=== PATIENT | female | born 1990 | race Caucasian/White ===

== ENCOUNTER 2016-04-29 21:03 | Emergency (ER) | payer OTHER ==
--- NOTE | 2016-04-29 23:34 | ED NURSING NOTES ---
Clinical Report - Nurses [facility] [address] [place] [address] 04/29/2016 21:04 Patient: FIOR VERDE TRIAGE Triage time 21:56 Apr 29 2016. Acuity: LEVEL 2. Chief Complaint: CHEST PAIN and DISCOMFORT. Alert. No acute distress. --22:00 Dianne Pearson R.N. 21:56 04/29/16. BP: 157/97. HR: 108. RR: 18. O2 saturation: 100%. Temp: 98.0 F. Pain level now 8/10. --22:00 Dianne Pearson R.N. Weight: 56.6 kg stated. Height/Length: 62 inches Per Patient. BMI: 22.8. --21:56 Dianne Pearson R.N. Medications None. --21:59 Dianne Pearson R.N. Allergies Amoxicillin. --21:59 Dianne Pearson R.N. History Arrived by private vehicle. Historian: patient. Primary physician (none). ( 1900 - Resting at home with family, sudden onset of CP, radiates up the Left side to neck.). Treatment MANAGER OF TRANSPORTATION: None. PAST MEDICAL HX: Last normal menstrual period- 28 days ago. Denies current . SOCIAL HX: Never smoker. Occasional alcohol use. No drug use. FALL RISK ASSESSMENT: Fall risk assessment completed. No fall risk identified. NUTRITIONAL RISK ASSESSMENT: The nutritional risk assessment revealed no deficiencies. FUNCTIONAL ASSESSMENT: Functional assessment: no impairments noted. LEARNING NEEDS ASSESSMENT: The learning needs assessment revealed no barriers. SKIN INTEGRITY ASSESSMENT: Skin integrity risk assessment completed. No skin integrity risk identified. --22:00 Dianne Pearson R.N. PROBLEMS: Abdominal Pain. Gastroenteritis. Immunizations. UTI - Urinary Tract Infection. . Vaginal Bleeding. Threatened . LNMP - Last Normal Menstrual Period. --21:59 Dianne Pearson R.N. ADDITIONAL SURGERIES: Dental Surgery. --21:59 Michel, Dianne, R.N. Interventions ID band on patient. To room. --22:00 Dianne Pearson R.N. PHYSICAL ASSESSMENT Ambulatory to room. GENERAL / NEURO / PSYCH: Oriented X 4. Appears in no acute distress. RESPIRATORY: Respirations not labored. CVS: Capillary refill less than 2 seconds. SKIN: Skin is warm and dry. --22:11 Dianne Pearson R.N. NURSING PROGRESS NOTES ( First meeting with pt in lobby at 21:32.). --22:02 Dianne Pearson R.N. EKG time: (22:13). EKG was performed by a tech and shown to the ED physician. --22:11 Dianne Pearson R.N. Patient ID band checked. Clean catch urine collected with return of yellow-colored clear urine; sample sent to lab for urinalysis. Specimen labeled in the presence of the patient. --22:14 Dianne Pearson R.N. 22:45- ACRN, helping in ED went in to pt room to start IV and draw blood for lab work. Pt reportedly refused. EDMD notified and spoke with pt. Pt agreed to have chest xray. --23:58 Bailey Willson R.N. DISPOSITION / DISCHARGE Condition at departure: stable. No learning barriers present. Discharge instructions provided and reviewed with the patient. Patient verbalized understanding. Written instructions provided in Sami. The patient was discharged home and accompanied by ethylbenzene cracking supervisor. She left the Emergency Department ambulatory and via private vehicle. Whipped Topping Supervisor driving. --00:03 Bailey Willson R.N. 00:03 04/30/16. BP: 116/79. HR: 82. RR: 16. O2 saturation: 100% on room air. Temp: deferred. Pain level now: 08/05. --00:03 Bailey Willson R.N. Locked/Released at 04/30/2016 0:05 by Bailey Willson R.N.
--- NOTE | 2016-04-29 23:34 | ED ORDER SUMMARY ---
..... Patient: FIOR VERDE OrderSheet [facility] VisitID: [id number] [place] [address] 26y, F Registration Date/Time: 04/29/2016 ORDER SHEET Weight: 56.6 kg (stated) Allergies: Amoxicillin GENERAL ORDERS: EKG - ER Stat (22:01 04/29/2016 Lyndsey Duong per protocol) (Ack 22:02 LMuller) (22:16 LMuller) Urine Drug Screen Urgent (22:40 04/29/2016 PHutchinson DO) (Ack 22:41 LMuller) (22:42 LMuller) UA-Culture if indicated Urgent (22:40 04/29/2016 PHutchinson DO) (Ack 22:41 LMuller) (22:42 LMuller) Urine Urgent (22:40 04/29/2016 PHutchinson DO) (Ack 22:41 LMuller) (22:42 LMuller) Accounting Assistant (Continuous) (22:45 04/29/2016 PHutchinson DO) Chest 2V Urgent (22:45 04/29/2016 PHutchinson DO) (Ack 22:47 Case) (23:23 Tina) Cardiac Panel Stat (22:58 04/29/2016 PHutchinson DO) (Ack 23:05 Ryleyekimana) BNP Urgent (22:58 04/29/2016 PHutchinson DO) (Ack 23:05 Jannieimana) D-Dimer Urgent (22:58 04/29/2016 PHutchinson DO) (Ack 23:05 Ryleyekimana) Amylase Urgent (22:58 04/29/2016 PHutchinson DO) (Ack 23:05 Jannieimana) TSH Urgent (22:58 04/29/2016 PHutchinson DO) (Ack 23:05 Adrianaegekimana) MEDICATION ORDERS: IV FLUIDS: IV NS : initial bolus 500 mL (1000 mL/hr), then 250 mL/hr for X4 (NOW) (22:58 04/29/2016 PHutchinson DO) ORDER SHEET NOTES: [Electronically signed by Bailey Willson R.N. (00:05 04/30/2016)] [Electronically signed by Ronald Herzog DO (03:32 04/30/2016)] [Electronically locked/signed by Bailey Willson R.N. (00:05 04/30/2016)]
--- NOTE | 2016-04-29 23:34 | ED ORDER SUMMARY ---
..... Patient: FIOR VERDE OrderSheet [facility] VisitID: [id number] [place] [address] 26y, F Registration Date/Time: 04/29/2016 ORDER SHEET Weight: 56.6 kg (stated) Allergies: Amoxicillin GENERAL ORDERS: EKG - ER Stat (22:01 04/29/2016 Lyndsey Duong per protocol) (Ack 22:02 LMuller) (22:16 LMuller) Urine Drug Screen Urgent (22:40 04/29/2016 PHutchinson DO) (Ack 22:41 LMuller) (22:42 LMuller) UA-Culture if indicated Urgent (22:40 04/29/2016 PHutchinson DO) (Ack 22:41 LMuller) (22:42 LMuller) Urine Urgent (22:40 04/29/2016 PHutchinson DO) (Ack 22:41 LMuller) (22:42 LMuller) Flaring Machine Operator (Continuous) (22:45 04/29/2016 PHutchinson DO) Chest 2V Urgent (22:45 04/29/2016 PHutchinson DO) (Ack 22:47 Case) (23:23 Tina) Cardiac Panel Stat (22:58 04/29/2016 PHutchinson DO) (Ack 23:05 Ryleyekimana) BNP Urgent (22:58 04/29/2016 PHutchinson DO) (Ack 23:05 Jannieimana) D-Dimer Urgent (22:58 04/29/2016 PHutchinson DO) (Ack 23:05 Ryleyekimana) Amylase Urgent (22:58 04/29/2016 PHutchinson DO) (Ack 23:05 Jannieimana) TSH Urgent (22:58 04/29/2016 PHutchinson DO) (Ack 23:05 Adrianaegekimana) MEDICATION ORDERS: IV FLUIDS: IV NS : initial bolus 500 mL (1000 mL/hr), then 250 mL/hr for X4 (NOW) (22:58 04/29/2016 PHutchinson DO) ORDER SHEET NOTES: [Electronically signed by Bailey Willson R.N. (00:05 04/30/2016)] [Electronically signed by Ronald Herzog DO (03:32 04/30/2016)] [Electronically locked/signed by Bailey Willson R.N. (00:05 04/30/2016)]
--- NOTE | 2016-04-29 23:34 | ED CLINICAL REPORT ---
Clinical Report - Physicians/Mid Levels [facility] [address] [place] [address] 04/29/2016 21:04 Patient: FIOR VERDE Time Seen: 22:39. Arrived- By private vehicle. Historian- patient. HISTORY OF PRESENT ILLNESS Chief Complaint: CHEST DISCOMFORT. At its maximum, severity described as moderate. When seen in the E.D., severity described as mild. Modifying factors. Not worsened by exertion, movement, cough or deep breaths. Not worsened by anything. Not relieved by anything. This started about 2 1/2 hours ago and is still present. It was gradual in onset and has been waxing/waning. Onset during light activity. It is described as sharp and "pain" and it is described as located in the left chest area, neck and left arm and radiating to the neck. No nausea, vomiting, difficulty breathing or diaphoresis. Similar symptoms previously: Recent medical care: Not recently seen/assessed. REVIEW OF SYSTEMS Last normal menstrual period- 28 days ago - uses "ring" for control. No fever, chills, cough. No blood tinged sputum or frankly bloody sputum, pedal edema or calf pain. No headache, sore throat, abdominal pain, black stools or difficulty with urination. No skin rash, enlarged lymph nodes, joint pain or bloody stools. All systems otherwise negative, except as recorded above. PAST HISTORY Threatened . Gastroenteritis. UTI - Urinary Tract Infection. Abdominal pain syndrome Surgeries: Dental Surgery. SOCIAL HISTORY Never smoker. Occasional alcohol use. No drug use. Is a local resident. ADDITIONAL NOTES The nursing notes have been reviewed. PHYSICAL EXAM Vital Signs: 04/29/2016 21:56 BP: 157/97. HR: 108. RR: 18. O2 saturation: 100%. Temp: 98.0 F. Appearance: Alert. Oriented X3. Patient in mild distress. Eyes: Pupils equal, round and reactive to light. Eyes normal inspection. No scleral icterus or pale conjunctivae. ENT: Pharynx normal. No pharyngeal erythema or tonsillar exudate. The mucous membranes are not dry. Neck: Normal inspection. Neck supple. CVS: Tachycardia. Heart sounds normal. Pulses normal. Respiratory: No respiratory distress. Chest pain reproducible with palpation of the anterior chest wall (left side focal tenderness). Breath sounds normal. No splinting, decreased air movement, rales, rhonchi or wheezes. No prolonged expiration. Abdomen: Soft and nontender. No mass. Back: Normal external inspection. Skin: Skin dry. Normal skin color. No rash. Normal skin turgor. Extremities: Extremities exhibit normal ROM. No calf tenderness. No lower extremity edema. Neuro: Oriented X 3. No motor deficit. LABS, X-RAYS, AND EKG EKG: EKG time: (22:13). Normal sinus rhythm. Rate: 75. Normal P waves. Normal DIANDRA. Normal QRS complex. Normal axis. Normal ST and T waves. The study has been interpreted contemporaneously by me. The EKG appears to be a good tracing. Rhythm Strip #1: Normal sinus rhythm. Regular rhythm. Narrow QRS complexes. Chest X-ray: No acute disease. Normal lung markings present. Normal heart size. Mediastinum normal. Great vessels normal. No infiltrate. Views: PA and lateral. Technique: good. The X-rays were interpreted contemporaneously by me. Pulse Oximetry: 04/29/2016 21:56 O2 saturation: 100%. (FIO2 - room air). Interpretation: normal. PROGRESS AND PROCEDURES Course of Care: Pt declines further work up / testing and understands that I cannot rule out other problems without further tests. She has clear, focal chest wall tenderness and normal ECG 04/30/2016 00:03 BP: 116/79. HR: 82. RR: 16. O2 saturation: 100%. Pain level now: 4/10. Patient/family counseled. Old ED records reviewed. Patient has had multiple ED visits. Disposition: Discharged. Condition: stable and improved. CLINICAL IMPRESSION Chest wall pain .12 lead EKG performed. INSTRUCTIONS Rest. Do not work for two days. Drink plenty of fluids. Warnings: Further evaluation is necessary in order to conduct further tests. It is very important to follow up with a physician. GENERAL WARNINGS: Return or contact your physician immediately if your condition worsens or changes unexpectedly, if not improving as expected, or if other problems arise. OTC Medications: Acetaminophen (available over the counter): take according to label instructions. Motrin (available over the counter): take according to label instructions. Follow-up: Follow up with your doctor tomorrow. AMA warnings: Oriented to person, place, and time. Gives appropriate answers and rational explanation of refusal of care. No indication for involuntary commitment is present, signs of psychosis, auditory hallucinations, delusional thinking or suicidal ideations. No slurred speech, tangential thinking, visual hallucinations or homicidal ideations. Speaks coherently. Abstract thinking intact. Clinical Impression: the patient has the capacity to make decisions regarding the medical care offered. Relevant issues reviewed and discussed with the patient. The suspected diagnosis, based upon the initiated medical screening exam, is other causes of chest pain, such as pulmonary embolism and aortic pathology and has been discussed with the patient. Acknowledges understanding of the reasons for recommendations regarding medical tests. The recommended medical care being refused is Further work up and testing. The risks of refusing recommended care that were disclosed are permanent mental impairment. Discharge instructions were provided. REFUSAL OF CARE STATEMENT (patient to review and sign in discharge instructions): I have read this paragraph. I understand that a doctor at this hospital wants to give me certain medical care. The doctor explained that care to me, and I understand what that care is. The doctor also explained to me what could happen to me if I leave here without having that care, and I understand what he said. (Electronically signed by Ronald Herzog DO 04/30/2016 3:32)
--- NOTE | 2016-04-29 23:34 | ED NURSING NOTES ---
Clinical Report - Nurses [facility] [address] [place] [address] 04/29/2016 21:04 Patient: FIOR VERDE TRIAGE Triage time 21:56 Apr 29 2016. Acuity: LEVEL 2. Chief Complaint: CHEST PAIN and DISCOMFORT. Alert. No acute distress. --22:00 Dianne Pearson R.N. 21:56 04/29/16. BP: 157/97. HR: 108. RR: 18. O2 saturation: 100%. Temp: 98.0 F. Pain level now 8/10. --22:00 Dianne Pearson R.N. Weight: 56.6 kg stated. Height/Length: 62 inches Per Patient. BMI: 22.8. --21:56 Dianne Pearosn R.N. Medications None. --21:59 Dianne Pearson R.N. Allergies Amoxicillin. --21:59 Dianne Pearson R.N. History Arrived by private vehicle. Historian: patient. Primary physician (none). ( 1900 - Resting at home with family, sudden onset of CP, radiates up the Left side to neck.). Treatment NIGHT TIME NANNY: None. PAST MEDICAL HX: Last normal menstrual period- 28 days ago. Denies current . SOCIAL HX: Never smoker. Occasional alcohol use. No drug use. FALL RISK ASSESSMENT: Fall risk assessment completed. No fall risk identified. NUTRITIONAL RISK ASSESSMENT: The nutritional risk assessment revealed no deficiencies. FUNCTIONAL ASSESSMENT: Functional assessment: no impairments noted. LEARNING NEEDS ASSESSMENT: The learning needs assessment revealed no barriers. SKIN INTEGRITY ASSESSMENT: Skin integrity risk assessment completed. No skin integrity risk identified. --22:00 Dianne Pearson R.N. PROBLEMS: Abdominal Pain. Gastroenteritis. Immunizations. UTI - Urinary Tract Infection. . Vaginal Bleeding. Threatened . LNMP - Last Normal Menstrual Period. --21:59 Dianne Pearson R.N. ADDITIONAL SURGERIES: Dental Surgery. --21:59 Michel, Dianne, R.N. Interventions ID band on patient. To room. --22:00 Dianne Pearson R.N. PHYSICAL ASSESSMENT Ambulatory to room. GENERAL / NEURO / PSYCH: Oriented X 4. Appears in no acute distress. RESPIRATORY: Respirations not labored. CVS: Capillary refill less than 2 seconds. SKIN: Skin is warm and dry. --22:11 Dianne Pearson R.N. NURSING PROGRESS NOTES ( First meeting with pt in lobby at 21:32.). --22:02 Dianne Pearson R.N. EKG time: (22:13). EKG was performed by a tech and shown to the ED physician. --22:11 Dianne Pearson R.N. Patient ID band checked. Clean catch urine collected with return of yellow-colored clear urine; sample sent to lab for urinalysis. Specimen labeled in the presence of the patient. --22:14 Dianne Pearson R.N. 22:45- ACRN, helping in ED went in to pt room to start IV and draw blood for lab work. Pt reportedly refused. EDMD notified and spoke with pt. Pt agreed to have chest xray. --23:58 Bailey Willson R.N. DISPOSITION / DISCHARGE Condition at departure: stable. No learning barriers present. Discharge instructions provided and reviewed with the patient. Patient verbalized understanding. Written instructions provided in Italian. The patient was discharged home and accompanied by silver service waiter. She left the Emergency Department ambulatory and via private vehicle. Home Improvement Contractor driving. --00:03 Bailey Willson R.N. 00:03 04/30/16. BP: 116/79. HR: 82. RR: 16. O2 saturation: 100% on room air. Temp: deferred. Pain level now: 08/05. --00:03 Bailey Willson R.N. Locked/Released at 04/30/2016 0:05 by Bailey Willson R.N.
--- NOTE | 2016-04-30 01:22 | DIAGNOSTIC IMAGING REPORT ---
PROCEDURE: XR CHEST 2 VIEW INDICATION: CHEST PAIN TECHNIQUE: PA and lateral views. COMPARISON: None. FINDINGS: Lungs are clear. Heart and mediastinum are normal. Thorax is normal. IMPRESSION: 1. Negative chest.
--- NOTE | 2016-04-30 03:32 | ED MAR SUMMARY ---
..... Medication Administration Record [facility] [address] [place], [place] [id number] Patient: FIOR VERDE Visit ID: [id number] 26y, F Weight: 56.6 kg Height/Length: 62 in BMI: 22.8 ALLERGIES: Amoxicillin
--- NOTE | 2016-04-30 03:32 | ED MAR SUMMARY ---
..... Medication Administration Record [facility] [address] [place], [place] [id number] Patient: FIOR VERDE Visit ID: [id number] 26y, F Weight: 56.6 kg Height/Length: 62 in BMI: 22.8 ALLERGIES: Amoxicillin
--- NOTE | 2016-04-30 03:32 | ED MED RECONCILIATION SUMMARY ---
Patient: FIOR VERDE Medication Reconciliation Report [facility] VisitID: [id number] [address] [place] [address] 26y, F Registration Date/Time: 04/29/2016 Weight: 56.6 kg Height/Length: 62 in. BMI: 22.8 ALLERGIES: Amoxicillin The patient's Home Medications are listed below: NONE. The source(s) of the original Home Medication information: Not obtained. The following Medications were given to the patient in the Emergency Department: None. The following Medications were prescribed to the patient: Acetaminophen (available over the counter): take according to label instructions. -- Ronald Herzog DO Motrin (available over the counter): take according to label instructions. -- Ronald Herzog DO
--- NOTE | 2016-04-30 03:32 | ED DISCHARGE INSTRUCTIONS ---
Patient: FIOR VERDE General Instructions [facility] VisitID: [id number] [place] [address] 26y, F Registration Date/Time: 04/29/2016 Chest wall pain .12 lead EKG performed. INSTRUCTIONS Rest. Do not work for two days. Drink plenty of fluids. Warnings: Further evaluation is necessary in order to conduct further tests. It is very important to follow up with a physician. GENERAL WARNINGS: Return or contact your physician immediately if your condition worsens or changes unexpectedly, if not improving as expected, or if other problems arise. OTC Medications: Acetaminophen (available over the counter): take according to label instructions. Motrin (available over the counter): take according to label instructions. Follow-up: Follow up with your doctor tomorrow. AMA warnings: Oriented to person, place, and time. Gives appropriate answers and rational explanation of refusal of care. No indication for involuntary commitment is present, signs of psychosis, auditory hallucinations, delusional thinking or suicidal ideations. No slurred speech, tangential thinking, visual hallucinations or homicidal ideations. Speaks coherently. Abstract thinking intact. Clinical Impression: the patient has the capacity to make decisions regarding the medical care offered. Relevant issues reviewed and discussed with the patient. The suspected diagnosis, based upon the initiated medical screening exam, is other causes of chest pain, such as pulmonary embolism and aortic pathology and has been discussed with the patient. Acknowledges understanding of the reasons for recommendations regarding medical tests. The recommended medical care being refused is Further work up and testing. The risks of refusing recommended care that were disclosed are permanent mental impairment. Discharge instructions were provided. REFUSAL OF CARE STATEMENT (patient to review and sign in discharge instructions): I have read this paragraph. I understand that a doctor at this hospital wants to give me certain medical care. The doctor explained that care to me, and I understand what that care is. The doctor also explained to me what could happen to me if I leave here without having that care, and I understand what he said. ADDITIONAL INFORMATION Chest Wall Pain: Costochondritis The chest pain that you have had today is caused by Costochondritis. This condition is due to an inflammation of the cartilage joining the ribs to the breastbone. It is not caused by heart or lung problems. Although the exact cause for costochondritis is not known, it often occurs during times of emotional stress. It can be painful, but it is not dangerous. It usually disappears within one to two weeks, but may recur. Rarely, a more serious condition may cause symptoms similar to costochondritis; therefore, watch for the warning signs listed below. Home Care: If you feel that emotional stress is a cause of your condition, try to identify sources of that stress. It may not be obvious! Learn ways to deal with the stress in your life such as regular exercise, muscle relaxation, meditation, or simply taking time out for yourself. For more information about this, consult your doctor or go to a local bookstore and review books and tapes available on the subject of stress reduction. You may use acetaminophen (Tylenol) or ibuprofen (Motrin, Advil) to control pain, unless another pain medicine was prescribed. [ NOTE: If you have liver disease or ever had a stomach ulcer, talk with your doctor before using these medicines.] The use of heat (hot wet compress or heating pad) with or without local analgesic creams (Deep Heat Rub, Jarred White) will be helpful to reduce pain. Follow Up with your doctor as directed or sooner if you do not start to improve within the next two days. Get Prompt Medical Attention if any of the following occur: A change in the type of pain: if it feels different, becomes more severe, lasts longer, or spreads into your shoulder, arm, neck, jaw or back Shortness of breath or increased pain with breathing Weakness, dizziness, or fainting Cough with dark colored sputum (phlegm) or blood Abdominal pain Dark red or black stools Fever of 100.4F (38C) or higher, or as directed by your healthcare provider Acetaminophen Oral tablet What is this medicine? ACETAMINOPHEN (a set a MILDRED andrew fen) is a pain reliever. It is used to treat mild pain and fever. How should I use this medicine? Take this medicine by mouth with a glass of water. Follow the directions on the package or prescription label. Take your medicine at regular intervals. Do not take your medicine more often than directed. Talk to your seasonal warehouse associate regarding the use of this medicine in children. While this drug may be prescribed for children as young as 6 years of age for selected conditions, precautions do apply. What side effects may I notice from receiving this medicine? Side effects that you should report to your doctor or health animal care worker as soon as possible: allergic reactions like skin rash, itching or hives, swelling of the face, lips, or tongue breathing problems fever or sore throat redness, blistering, peeling or loosening of the skin, including inside the mouth trouble passing urine or change in the amount of urine unusual bleeding or bruising unusually weak or tired yellowing of the eyes or skin Side effects that usually do not require medical attention (report to your doctor or health animal care worker if they continue or are bothersome): headache nausea, stomach upset What may interact with this medicine? alcohol imatinib isoniazid other medicines with acetaminophen What if I miss a dose? If you miss a dose, take it as soon as you can. If it is almost time for your next dose, take only that dose. Do not take double or extra doses. Where should I keep my medicine? Keep out of reach of children. Store at room temperature between 20 and 25 degrees C (68 and 77 degrees F). Protect from moisture and heat. Throw away any unused medicine after the expiration date. What should I tell my health care provider before I take this medicine? They need to know if you have any of these conditions: if you frequently drink alcohol containing drinks liver disease an unusual or allergic reaction to acetaminophen, other medicines, foods, dyes or preservatives or trying to get breast-feeding What should I watch for while using this medicine? Tell your doctor or health animal care worker if the pain lasts more than 10 days (5 days for children), if it gets worse, or if there is a new or different kind of pain. Also, check with your doctor if a fever lasts for more than 3 days. Do not take other medicines that contain acetaminophen with this medicine. Always read labels carefully. If you have questions, ask your doctor or pharmacist. If you take too much acetaminophen get medical help right away. Too much acetaminophen can be very dangerous and cause liver damage. Even if you do not have symptoms, it is important to get help right away. Ibuprofen Oral tablet What is this medicine? IBUPROFEN (eye BYOO proe fen) is a non-steroidal anti-inflammatory drug (NSAID). It is used for dental pain, fever, headaches or migraines, osteoarthritis, rheumatoid arthritis, or painful monthly periods. It can also relieve minor aches and pains caused by a cold, flu, or sore throat. How should I use this medicine? Take this medicine by mouth with a glass of water. Follow the directions on the prescription label. Take this medicine with food if your stomach gets upset. Try to not lie down for at least 10 minutes after you take the medicine. Take your medicine at regular intervals. Do not take your medicine more often than directed. A special MedGuide will be given to you by the pharmacist with each prescription and refill. Be sure to read this information carefully each time. Talk to your seasonal warehouse associate regarding the use of this medicine in children. Special care may be needed. What side effects may I notice from receiving this medicine? Side effects that you should report to your doctor or health animal care worker as soon as possible: allergic reactions like skin rash, itching or hives, swelling of the face, lips, or tongue black or bloody stools, blood in the urine or in vomit breathing problems changes in vision chest pain general ill feeling or flu-like symptoms nausea or vomiting redness, blistering, peeling or loosening of the skin, including inside the mouth slurred speech or weakness on one side of the body stomach pain unexplained weight gain or swelling unusually weak or tired yellowing of eyes or skin Side effects that usually do not require medical attention (report to your doctor or health animal care worker if they continue or are bothersome): constipation or diarrhea dizziness gas or heartburn stomach upset What may interact with this medicine? Do not take this medicine with any of the following medications: cidofovir ketorolac methotrexate pemetrexed This medicine may also interact with the following medications: alcohol aspirin diuretics lithium other drugs for inflammation like prednisone warfarin What if I miss a dose? If you miss a dose, take it as soon as you can. If it is almost time for your next dose, take only that dose. Do not take double or extra doses. Where should I keep my medicine? Keep out of the reach of children. Store at room temperature between 15 and 30 degrees C (59 and 86 degrees F). Keep container tightly closed. Throw away any unused medicine after the expiration date. What should I tell my health care provider before I take this medicine? They need to know if you have any of these conditions: asthma cigarette smoker drink more than 3 alcohol containing drinks a day heart disease or circulation problems such as heart failure or leg edema (fluid retention) high blood pressure kidney disease liver disease stomach bleeding or ulcers an unusual or allergic reaction to ibuprofen, aspirin, other NSAIDS, other medicines, foods, dyes, or preservatives or trying to get breast-feeding What should I watch for while using this medicine? Tell your doctor or healthcare professional if your symptoms do not start to get better or if they get worse. This medicine does not prevent heart attack or stroke. In fact, this medicine may increase the chance of a heart attack or stroke. The chance may increase with longer use of this medicine and in people who have heart disease. If you take aspirin to prevent heart attack or stroke, talk with your doctor or health animal care worker. Do not take other medicines that contain aspirin, ibuprofen, or naproxen with this medicine. Side effects such as stomach upset, nausea, or ulcers may be more likely to occur. Many medicines available without a prescription should not be taken with this medicine. This medicine can cause ulcers and bleeding in the stomach and intestines at any time during treatment. Ulcers and bleeding can happen without warning symptoms and can cause . To reduce your risk, do not smoke cigarettes or drink alcohol while you are taking this medicine. You may get drowsy or dizzy. Do not drive, use machinery, or do anything that needs mental alertness until you know how this medicine affects you. Do not stand or sit up quickly, especially if you are an older patient. This reduces the risk of dizzy or fainting spells. This medicine can cause you to bleed more easily. Try to avoid damage to your teeth and gums when you brush or floss your teeth. You have been given the following additional information: Chest Wall Pain, Costochondritis Acetaminophen Oral tablet Ibuprofen Oral tablet Rest. Do not work for two days. (Electronically signed by Ronald Herzog DO 04/30/2016 3:32)
--- NOTE | 2016-04-30 03:32 | ED MED RECONCILIATION SUMMARY ---
Patient: FIOR VERDE Medication Reconciliation Report [facility] VisitID: [id number] [address] [place] [address] 26y, F Registration Date/Time: 04/29/2016 Weight: 56.6 kg Height/Length: 62 in. BMI: 22.8 ALLERGIES: Amoxicillin The patient's Home Medications are listed below: NONE. The source(s) of the original Home Medication information: Not obtained. The following Medications were given to the patient in the Emergency Department: None. The following Medications were prescribed to the patient: Acetaminophen (available over the counter): take according to label instructions. -- Ronald Herzog DO Motrin (available over the counter): take according to label instructions. -- Ronald Herzog DO
== END 2016-04-30 00:02 | disposition home or self-care (01) ==
LOC: ED SRH 21:03
DX: R07.89 Other chest pain (principal); Z88.1 Allergy status to other antibiotic agents
CPT/HCPCS: 90004; 92760; 92761; 92762; 92763; 92764; 92765; 92766; 92767; 93070